=== PATIENT | male | born 1985 | race American Indian/Alaskan Native ===

== ENCOUNTER 2019-06-19 03:41 | Emergency (ER) | payer OTHER ==
[~2019-06-19] VITALS: Ht 177.8 cm; Wt 69.5 kg
[2019-06-19 03:47] VITALS: BP 140/84
[2019-06-19] MEDS ORDERED: clotrimazole topical cream 15gm tube TP ONE (04:30)
== END 2019-06-19 05:09 | disposition home or self-care (01) ==
LOC: ER 03:41
DX: M79.672 Pain in left foot (principal); M79.671 Pain in right foot; F12.90 Cannabis use, unspecified, uncomplicated; F15.90 Other stimulant use, unspecified, uncomplicated; Z60.2 Problems related to living alone
CPT/HCPCS: 99282; 99283

== ENCOUNTER 2019-09-08 14:55 | Emergency (ER) | payer MEDICAID ==
[~2019-09-08] VITALS: Ht 175.3 cm; Wt 70.0 kg
[2019-09-08 16:10] LABS: BASOPHILS # (AUTO) 0.2 X10'3 (0-0.2); BASOPHILS % (AUTO) 1.5 % (0-1); EOSINOPHILS # (AUTO) 0.4 X10'3 (0-0.9); EOSINOPHILS % (AUTO) 3.2 % (0-6); HEMATOCRIT 41.5 % (42.0-52.0); HEMOGLOBIN 13.8 g/dl (14.0-17.9); LYMPHOCYTES # (AUTO) 1.1 X10'3 (1.1-4.8); LYMPHOCYTES % (AUTO) 9.3 % (21-51); MEAN CORPUSCULAR HEMOGLOBIN 29.4 PG (27.0-31.0); MEAN CORPUSCULAR HGB CONC 33.2 g/dL (33.0-36.5); MEAN CORPUSCULAR VOLUME 88.4 FL (78-98); MEAN PLATELET VOLUME 8.4 FL (7.4-10.4); MONOCYTES # (AUTO) 0.8 X10'3 (0-0.9); MONOCYTES % (AUTO) 6.6 % (2-12); NEUTROPHILS # (AUTO) 9.3 X10'3 (1.8-7.7); NEUTROPHILS % (AUTO) 79.4 % (42-75); PLATELET COUNT 300 X10'3 (140-440); RED BLOOD COUNT 4.69 X10'6 (4.70-6.10); RED CELL DISTRIBUTION WIDTH 14.2 % (11.5-14.5); WHITE BLOOD COUNT 11.6 X10'3 (4.5-11.0)
[2019-09-08 16:35] LABS: ALANINE AMINOTRANSFERASE 26 U/L (12-78); ALBUMIN 3.6 G/DL (3.4-5.0); ALBUMIN/GLOBULIN RATIO 0.9 (1.1-1.5); ALKALINE PHOSPHATASE 82 IU/L (46-116); ANION GAP 7 (8-16); ASPARTATE AMINO TRANSFERASE 23 U/L (10-37); BILIRUBIN,TOTAL 0.4 MG/DL (0.1-1.0); BLOOD UREA NITROGEN 26 MG/DL (7-18); BUN/CREATININE RATIO 28.9 (5.4-32.0); CALCIUM 8.4 MG/DL (8.5-10.1); CHLORIDE 108 MMOL/L (99-107); GLUCOSE 83 MG/DL (70-104); POTASSIUM 3.9 MMOL/L (3.5-5.1); SODIUM 141 MMOL/L (135-145); TOTAL CARBON DIOXIDE 25.9 MMOL/L (24-32); TOTAL PROTEIN 7.5 G/DL (6.4-8.2); eGFR > 90 ML/MIN
[2019-09-08 16:37] LABS: ETHANOL < 0.010 GM/DL (0.0-0.010)
[2019-09-08 17:16] LABS: CLARITY,URINE CLEAR (Clear); COLOR,URINE YELLOW (Yellow); GLUCOSE, URINE NEGATIVE (Neg); KETONES,URINE NEGATIVE (Neg); LEUKOCYTE ESTERASE ,URINE NEGATIVE (Neg); NITRITES, URINE NEGATIVE (Neg); OCCULT BLOOD,URINE NEGATIVE (Neg); PROTEIN,URINE NEGATIVE (Neg); UROBILINOGEN,URINE 0.2 E.U/dL (0.2-1.0)
[2019-09-08 17:19] LABS: UA COLLECTION TYPE CLN CATCH MIDSTREAM
[2019-09-08 17:28] LABS: URINE AMPHETAMINE SCREEN POSITIVE (Neg); URINE BARBITUATE SCREEN NEGATIVE (Neg); URINE BENZODIAZEPINES SCREEN NEGATIVE (Neg); URINE CANNABINOID SCREEN POSITIVE (Neg); URINE COCAINE SCREEN NEGATIVE (Neg); URINE METHADONE SCREEN NEGATIVE (Neg); URINE OPIATE SCREEN NEGATIVE (Neg); URINE PHENCYCLIDINE SCREEN NEGATIVE (Neg)
--- NOTE | 2019-09-08 17:36 | NUR ---
Patient sleeping on left side. No distress observed. Continue to monitor.
--- NOTE | 2019-09-08 18:17 | NUR ---
PACKET FAXED [facility]
--- NOTE | 2019-09-08 18:19 | NUR ---
PACKET FAXED TO [facility]
--- NOTE | 2019-09-08 18:30 | NUR ---
Assumed care of patient. Pt lying on right side with eye open, respirations even and unlabored.
--- NOTE | 2019-09-08 19:15 | NUR ---
Patient is awake and watching nurses station. Patient presents as cooperative with a flat affect. Pt is alert and oriented x4. Pt. is disheveled and maladorous. Pt. is compliant with 1:1 assessment. Pt has no complaints. Pt. denies SI, but does minmally endorse A/VH, "I thought someone was just there talking to me." Pt. reports he has no history of mental health, but medical records indicate a history of bipolar. Pt. does not appear to be responding to internal stimuli. Pt. answers questions appropriately. Pt. has a small laceration to left medial lower eyebrow, pt declined to have area cleaned.
--- NOTE | 2019-09-08 20:33 | NUR ---
Patient appears to be sleeping in supine position, respirations even and unlabored.
--- NOTE | 2019-09-08 22:25 | NUR ---
Pt appears to be sleeping. No distress noted, rr even and unlabored.
--- NOTE | 2019-09-09 00:34 | NUR ---
Pt. appears to be sleeping in a supine position, rr even and unlabored.
--- NOTE | 2019-09-09 02:28 | NUR ---
Patient continues to sleep with no distress noted, rr even and unlabored.
[2019-09-09] MEDS ORDERED: NO HOME MEDS (02:51)
--- NOTE | 2019-09-09 04:28 | NUR ---
Pt appears to be sleeping, no distress noted. Respirations even and unlabored.
[2019-09-09 04:59] VITALS: BP 117/66
--- NOTE | 2019-09-09 06:30 | NUR ---
Patient sleeping on right side. Respirations equal and nonlabored. No distress observed. Continue to monitor.
--- NOTE | 2019-09-09 08:20 | NUR ---
Patient eating breakfast. No distress observed. Continue to monitor.
== END 2019-09-09 09:02 | disposition home or self-care (01) ==
LOC: ER 14:55
DX: S01.112A Laceration without foreign body of left eyelid and periocular area, initial encounter (principal); F31.9 Bipolar disorder, unspecified; F17.200 Nicotine dependence, unspecified, uncomplicated; F15.10 Other stimulant abuse, uncomplicated; F12.90 Cannabis use, unspecified, uncomplicated; Z72.89 Other problems related to lifestyle; W31.89XA Contact with other specified machinery, initial encounter; Y93.89 Activity, other specified; Y92.89 Other specified places as the place of occurrence of the external cause; Y99.8 Other external cause status
CPT/HCPCS: 36415; 80053; 80305; 80320; 81003; 84443; 85025; 99285

== ENCOUNTER 2021-04-06 20:47 | Emergency (ER) | payer OTHER ==
[~2021-04-06] VITALS: Ht 177.8 cm; Wt 68.2 kg
[~2021-04-06 20:47] MED LIST: NO HOME MEDS
[2021-04-06 21:00] VITALS: BP 141/89
[2021-04-06] MEDS ORDERED: TETanus/Pertussis (Acell)/Diphther VAC/PF (Tdap-Adult) 0.5ml syringe IMVAC ONE (21:45)
[2021-04-06] MEDS ORDERED: LIDOcaine 1% 30ml preserv. free vial IJ ONE (21:45)
[2021-04-06] MEDS ORDERED: acetaminophen 325mg tablet PO ONE (21:50)
[2021-04-06] MEDS ORDERED: AMOX-422 PO (22:08)
== END 2021-04-06 22:27 | disposition home or self-care (01) ==
LOC: ER 20:48 → EEVIPCON 20:48 → ER 22:27
DX: S61.412A Laceration without foreign body of left hand, initial encounter (principal); F12.90 Cannabis use, unspecified, uncomplicated; F15.90 Other stimulant use, unspecified, uncomplicated; Z72.89 Other problems related to lifestyle; Z79.2 Long term (current) use of antibiotics; W50.3XXA Accidental bite by another person, initial encounter; Y93.89 Activity, other specified; Y92.89 Other specified places as the place of occurrence of the external cause; Y99.8 Other external cause status
CPT/HCPCS: 12001; 73130; 90471; 90715; 99283